=== PATIENT | male | born 1985 | race American Indian/Alaskan Native ===

== ENCOUNTER 2019-07-22 16:46 | Emergency (ER) | payer SELFPAY ==
[2019-07-22] MEDS ORDERED: ASPIRIN 325 MG TAB PO ONE (17:52)
--- NOTE | 2019-07-22 17:53 | Event Note ---
ED Screening Note Date of service: 07/22/19 Time: 17:51 ED Screening Note: 34 y o male presents with left sided chest pain x 2 days radiating to left arm This initial assessment/diagnostic orders/clinical plan/treatment(s) is/are subject to change based on patients health status, clinical progression and re- assessment by fellow clinical providers in the ED. Further treatment and workup at subsequent clinical providers discretion. Patient/guardian urged not to elope from the ED as their condition may be serious if not clinically assessed and managed. Initial orders include: labs
--- NOTE | 2019-07-22 18:35 | XRay Report ---
CHEST 1 VIEW 6:03 PM INDICATION / CLINICAL INFORMATION: Chest Pain. COMPARISON: None available. FINDINGS: SUPPORT DEVICES: None. HEART / MEDIASTINUM: The heart size and pulmonary vasculature are normal for technique. The aorta is normal in caliber. LUNGS / PLEURA: No significant pulmonary or pleural abnormality. No pneumothorax. ADDITIONAL FINDINGS: No significant additional findings. IMPRESSION: No acute findings. Signer Name: Srinivasan Nicole MD Signed: 07/22/2019 6:31 PM Workstation Name: [id number]
[2019-07-22 18:49] LABS: Basophils # (Auto) 0.1 K/mm3 (0.0-0.1); Eosinophils % (Auto) 0.4 % (0.0-4.3); Hematocrit 43.4 % (35.5-45.6); Hemoglobin 14.4 gm/dl (11.8-15.2); Lymphocytes # (Auto) 2.3 K/mm3 (1.2-5.4); Lymphocytes % (Auto) 36.4 % (13.4-35.0); Mean Corpuscular HGB Conc 33 % (32-34); Mean Corpuscular Volume 84 fl (84-94); Monocytes # (Auto) 0.5 K/mm3 (0.0-0.8); Monocytes % (Auto) 7.9 % (0.0-7.3); Platelet Count 200 K/mm3 (140-440); Red Blood Count 5.15 M/mm3 (3.65-5.03); Red Cell Distribution Width 13.3 % (13.2-15.2)
[2019-07-22 19:16] LABS: BUN/Creatinine Ratio 12; Blood Urea Nitrogen 11 mg/dL (9-20); Calcium 9.7 mg/dL (8.4-10.2); Hemolysis Index 31
[2019-07-22] MEDS ORDERED: NITROGLYCERIN 0.4 MG TAB SUBL SL PRN (20:22)
[2019-07-22] MEDS ORDERED: ASPIRIN 325 MG TAB ONE (20:57)
[2019-07-22 21:03] VITALS: BP 169/96
--- NOTE | 2019-07-22 22:49 | Emergency Department Report ---
ED Chest Pain HPI - General Chief Complaint: Chest Pain Stated Complaint: CHEST PAIN/LT ARM NUMB Source: patient Mode of arrival: Ambulatory Limitations: No Limitations - History of Present Illness Initial Comments: Patient is a 34-year-old -[place] male with a history of hypertension and who is noncompliant with medications presents to the ED with acute onset persistent left-sided chest pain that radiates to the left arm with tingling and numbness, headache and elevated blood pressure for the last 1 week, worse in the last 2 days. Patient states that the left-sided chest pain was initially intermittent but in the last 2 days has continued to be constant, sharp t ightness and pressure on the left side of the chest. Patient denies diaphoresis, nausea, vomiting, change in vision, syncope, palpitations, abdominal pain, neck pain, heavy lifting or fall and traumatic injury, sore throat or cough, fever and chills. Patient states that he he took 2 aspirins 2 days ago with no relief. MD Complaint: chest pain, other (elevated BP; headache; left arm numbness and tingling sensation) -: Sudden, week(s) (1) Onset: during rest, during exertion, awoke with symptoms Pain Location: substernal, left chest Pain Radiation: LUE Severity: severe Severity scale (0 -10): 6 Quality: aching, sharp Consistency: constant Improves With: nothing Worsens With: exertion, palpation, movement re: denies: nausea, vomting, diaphoresis, dyspnea, sense of impending doom Other Symptoms: denies: cough, fever, syncope, rash, acid taste in mouth, leg swelling, palpitations, burping, other Treatments Prior to Arrival: none Aspirin use within the Past 7 Days: (1) Yes - Related Data On Oral Contraceptives: No Previous Rx's Medication Instructions Recorded Last Taken Type Ibuprofen [Motrin] 800 mg PO Q8HR PRN #24 tablet 07/22/19 Unknown Rx Lisinopril/Hydrochlorothiazide 1 each PO DAILY #30 tablet 07/22/19 Unknown Rx [Zestoretic 20-12.5 mg] Nitroglycerin [Nitrostat] 0.4 mg SL Q5M PRN #24 tab 07/22/19 Unknown Rx Allergies Allergy/AdvReac Type Severity Reaction Status Date / Time No Known Allergies Allergy Verified 07/22/19 21:03 Heart Score - HEART Score History: Slightly suspicious EKG: Normal Age: < 45 Risk factors: 1-2 risk factors Troponin: < normal limit HEART Score: 1 ED Review of Systems ROS: Stated complaint: CHEST PAIN/LT ARM NUMB Other details as noted in HPI Constitutional: denies: chills, fever Eyes: denies: eye pain, eye discharge, vision change ENT: denies: ear pain, throat pain Respiratory: denies: cough, shortness of breath, wheezing Cardiovascular: chest pain (palpable left-sided chest pain). denies: palpitations, dyspnea on exertion, orthopnea, syncope, paroxysmal nocturnal dyspnea Endocrine: no symptoms reported. denies: flushing, intolerance to cold, increased thirst, unexplained weight gain Gastrointestinal: denies: abdominal pain, nausea, vomiting, diarrhea Genitourinary: denies: urgency, dysuria Musculoskeletal: denies: back pain, joint swelling, arthralgia Skin: denies: rash, lesions Neurological: headache. denies: weakness, paresthesias Psychiatric: anxiety. denies: depression Hematological/Lymphatic: denies: easy bleeding, easy bruising ED Past Medical Hx - Past Medical History Previous Medical History?: Yes Hx Hypertension: Yes - Surgical History Past Surgical History?: No - Medications Home Medications: Home Medications Medication Instructions Recorded Confirmed Last Taken Type Ibuprofen [Motrin] 800 mg PO Q8HR PRN #24 tablet 07/22/19 Unknown Rx Lisinopril/Hydrochlorothiazide 1 each PO DAILY #30 tablet 07/22/19 Unknown Rx [Zestoretic 20-12.5 mg] Nitroglycerin [Nitrostat] 0.4 mg SL Q5M PRN #24 tab 07/22/19 Unknown Rx ED Physical Exam - General Limitations: No Limitations General appearance: alert, in no apparent distress - Head Head exam: Present: atraumatic, normocephalic, normal inspection - Eye Eye exam: Present: normal appearance, PERRL, EOMI Pupils: Present: normal accommodation - ENT ENT exam: Present: normal exam, normal orophraynx, mucous membranes moist, TM's normal bilaterally, normal external ear exam - Neck Neck exam: Present: normal inspection, full ROM. Absent: tenderness, meningismus, lymphadenopathy, thyromegaly - Respiratory Respiratory exam: Present: normal lung sounds bilaterally, chest wall tenderness. Absent: respiratory distress, wheezes, rales, rhonchi, stridor, accessory muscle use, prolonged expiratory - Cardiovascular Cardiovascular Exam: Present: normal rhythm, bradycardia, normal heart sounds. Absent: systolic murmur, diastolic murmur, rubs, gallop - GI/Abdominal GI/Abdominal exam: Present: soft, normal bowel sounds. Absent: tenderness, guarding, rebound, hyperactive bowel sounds, organomegaly - Extremities Exam Extremities exam: Present: normal inspection, full ROM, normal capillary refill - Back Exam Back exam: Present: normal inspection, full ROM. Absent: tenderness, CVA tenderness (R), muscle spasm, paraspinal tenderness, vertebral tenderness - Neurological Exam Neurological exam: Present: alert, oriented X3, CN II-XII intact, normal gait, reflexes normal - Psychiatric Psychiatric exam: Present: normal affect, normal mood, anxious - Skin Skin exam: Present: warm, dry, intact, normal color. Absent: rash, diaphoretic, erythema, urticaria ED Course Vital Signs 07/22/19 07/22/19 07/22/19 17:49 21:00 21:02 Temperature 98.0 F Pulse Rate 56 L 57 L 57 L Respiratory 16 18 Rate Blood Pressure 169/96 Blood Pressure 178/105 169/96 [Right] O2 Sat by Pulse 95 96 Oximetry 07/22/19 21:57 Temperature Pulse Rate 96 H Respiratory 17 Rate Blood Pressure Blood Pressure [Right] O2 Sat by Pulse 98 Oximetry THEO score - Theo Score Age > 65: (0) No Aspirin use within the Past 7 Days: (1) Yes 3 or more CAD Risk Factors: (0) No 2 or more Angina events in past 24 hrs: (1) Yes Known CAD with more than 50% Stenosis: (0) No Elevated Cardiac Markers: (0) No ST Deviation Greater than 0.5mm: (0) No THEO Score: 2 ED Medical Decision Making - Lab Data Result diagrams: 07/22/19 18:14 07/22/19 18:14 - EKG Data EKG shows normal: sinus rhythm Rate: bradycardia - EKG Data 07/22/19 22:54 Initial EKG shows sinus bradycardia with a ventricular rate of [address] elevation in certain leads V2, V3, V4 which are characterized as normal early repolarization pattern. 07/22/19 23:21 Repeat EKG shows sinus bradycardia with a ventricular rate of [address] elevation in certain leads V2, V3, V4 which are characterized as normal early repolarization pattern. - Radiology Data Radiology results: report reviewed, image reviewed Chest x-ray shows no acute cardiopulmonary abnormalities or pneumonitis. - Medical Decision Making This is a 34-year-old -[place] male with a history of hypertension and is noncompliant with his medications presented to the ED with elevated blood pressure, headache, left-sided chest pain that radiated to the left arm for one week constantly. Patient states that 2 days ago the pain got worse and she had to take 2 aspirin tablets, and given this did not help control his constant chest pain. In the ED, EKG shows sinus bradycardia with ventricular rate of [address] elevation in certain leads V2, V3, V4 which are characterized as normal early repolarization pattern. Repeat EKG after 3 hours in the ED is unchanged. Lab test results were reviewed and are all nonactionable including initial and repeat troponin levels. The patient's heart school is 1 based on the past medical history of hypertension. Chest x-ray shows no acute cardiopulmonary abdomen the case. Patient was treated initially in the ED with aspirin and also given nitroglycerin 0.4 mg sublingual tablets which helped control his left sided chest pain from a 10 out of 10 initially to a 2 out of 10. Patient's case was discussed with ED attending physician who corin mmended the patient be admitted to the hospital for further cardiac work up. This plan was to get the patient but the patient declined to be admitted and opted to sign out AGAINST MEDICAL ADVICE. Patient was advised on the pros and cons of signing out AGAINST MEDICAL ADVICE from the hospital associated given his symptoms and physical exam findings. Patient however still declined and opted to sign out AMA. - Differential Diagnosis ACS; Uncontrolled HTN; Costochondritis; Muscle strain; Anxiety Critical Care Time: Yes Critical care time in (mins) excluding proc time.: 35 Critical care attestation.: If time is entered above; I have spent that time in minutes in the direct care of this critically ill patient, excluding procedure time. Critical Care Time: 35 minutes ED Disposition Clinical Impression: Uncontrolled stage 2 hypertension, Chest pain in adult, Anxiety as acute reaction to exceptional stress Disposition: DC-07 LEFT AGAINST MED ADVICE Is pt being admited?: No Does the pt Need Aspirin: No Condition: Stable Instructions: Chest Pain (ED), Hypertension (ED), Angina (ED) Additional Instructions: Even though you have signed out AGAINST MEDICAL ADVICE on the emergency department, please follow-up with the radio despatcher Dr. Hines within 48 hours for further evaluation. Contact his office to schedule a follow-up appointment for further evaluation. Prescriptions: Ibuprofen [Motrin] 800 mg PO Q8HR PRN #24 tablet PRN Reason: Pain , Severe (7-10) Nitroglycerin [Nitrostat] 0.4 mg SL Q5M PRN #24 tab PRN Reason: Chest Pain Lisinopril/Hydrochlorothiazide [Zestoretic 20-12.5 mg] 1 each PO DAILY #30 tablet Referrals: KAREN HINES MD [Staff Physician] - [facility] JORGE BEAN MD [Staff Physician] - 7-10 days Forms: AMA Form, Work/School Release Form(ED) Time of Disposition: 23:56 Print Language: ARABIC
== END 2019-07-23 00:08 | disposition left against medical advice (07) ==
LOC: ED 16:46
DX: F41.1 Generalized anxiety disorder (principal); R20.0 Anesthesia of skin; I10 Essential (primary) hypertension; Z79.899 Other long term (current) drug therapy
CPT/HCPCS: 36415; 71045; 80048; 83880; 84484; 85025; 93005; 93010

== ENCOUNTER 2020-03-11 17:12 | Emergency (ER) | payer SELFPAY ==
[2020-03-11 17:49] VITALS: BP 156/77
== END 2020-03-11 21:20 | disposition left against medical advice (07) ==
LOC: ED 17:12
DX: R06.00 Dyspnea, unspecified (principal); Z53.21 Procedure and treatment not carried out due to patient leaving prior to being seen by health care provider

== ENCOUNTER 2022-01-20 11:29 | Emergency (ER) | payer SELFPAY ==
[2022-01-20] MEDS ORDERED: TETANUS,DIPH,PERTUSS(ACELL) VACCINE 0.5 ML SYRINGE IM ONE (16:01)
[2022-01-20 16:23] VITALS: BP 151/80
--- NOTE | 2022-01-20 16:26 | Emergency Department Report ---
ED Extremity Problem HPI - General Chief complaint: Wound/Laceration Stated complaint: RT FOOT CUT WITH INFECTION/LT FOOT PAIN Source: patient Mode of arrival: Ambulatory Limitations: No Limitations - History of Present Illness Initial comments: Patient is a 36-year-old -[place] male with a history of hypertension who presents to the ED with complaint of acute onset persistent left plantar foot pain due to a small puncture wound that he sustained after stepping on a plastic toy at home that caused a small puncture wound 2 months ago. Patient states that he did not come to the hospital when this injury occurred 2 months ago. Patient states the pain has been constant and persistent in the in the last 1 week the area around the small puncture wound has increasingly been swelling. Patient also complains of persistent itchy mildly erythematous rash with greenish discharge between his right toes for over 1 month. Patient states that he is not up-to-date with tetanus vaccinations. Patient denies fall, nausea and vomiting, chest pain or shortness of breath, fever, chills, numbness and tingling or weakness of lower extremities bilaterally, low back pain or h eavy lifting. MD Complaint: extremity pain (Left plantar foot painful puncture wound) -: Gradual, month(s) (2) Location: left (foot), lower extremity (left plantar foot) History of Same: No -: Yes arthralgia, No fever, No associated dyspnea, No associated chest pain Radiation: none Severity scale (0 -10): 8 Quality: aching, sharp Consistency: constant Improves with: nothing Worsens with: weight bearing, walking, exertion, palpation Associated Symptoms: denies other symptoms. denies: chest pain, shortness of breath, fever, myalgias, arthralgias, rash - Related Data Previous Rx's Medication Instructions Recorded Last Taken Type Lisinopril/Hydrochlorothiazide 1 each PO DAILY #30 tablet 07/22/19 Unknown Rx [Zestoretic 20-12.5 mg] Nitroglycerin [Nitrostat] 0.4 mg SL Q5M PRN #24 tab 07/22/19 Unknown Rx Ciprofloxacin HCl 500 mg PO Q12H #20 tab 01/20/22 Unknown Rx Ibuprofen [Motrin 800 MG tab] 800 mg PO Q8HR PRN #30 tablet 01/20/22 Unknown Rx Terbinafine HCl [Lamisil] 125 ml TP BID #1 spray 01/20/22 Unknown Rx Allergies Allergy/AdvReac Type Severity Reaction Status Date / Time No Known Allergies Allergy Verified 03/11/20 17:44 ED Review of Systems ROS: Stated complaint: RT FOOT CUT WITH INFECTION/LT FOOT PAIN Other details as noted in HPI Constitutional: denies: chills, fever Eyes: denies: eye pain, eye discharge, vision change ENT: denies: ear pain, throat pain Respiratory: denies: cough, shortness of breath, wheezing Cardiovascular: denies: chest pain, palpitations Endocrine: no symptoms reported Gastrointestinal: denies: abdominal pain, nausea, diarrhea Genitourinary: denies: urgency, dysuria Musculoskeletal: arthralgia (left plantar foot pain with mild swelling due to a small puncture wound), myalgia. denies: back pain, joint swelling Skin: other (swollen painful small puncture wound on left flantar foot). denies: rash, lesions, change in color Neurological: denies: headache, weakness, paresthesias Psychiatric: denies: anxiety, depression Hematological/Lymphatic: denies: easy bleeding, easy bruising ED Past Medical Hx - Past Medical History Hx Hypertension: Yes - Medications Home Medications: Home Medications Medication Instructions Recorded Confirmed Last Taken Type Lisinopril/Hydrochlorothiazide 1 each PO DAILY #30 tablet 07/22/19 Unknown Rx [Zestoretic 20-12.5 mg] Nitroglycerin [Nitrostat] 0.4 mg SL Q5M PRN #24 tab 07/22/19 Unknown Rx Ciprofloxacin HCl 500 mg PO Q12H #20 tab 01/20/22 Unknown Rx Ibuprofen [Motrin 800 MG tab] 800 mg PO Q8HR PRN #30 tablet 01/20/22 Unknown Rx Terbinafine HCl [Lamisil] 125 ml TP BID #1 spray 01/20/22 Unknown Rx ED Physical Exam - General Limitations: No Limitations General appearance: alert, in no apparent distress - Head Head exam: Present: atraumatic, normocephalic, normal inspection - Eye Eye exam: Present: normal appearance, PERRL, EOMI Pupils: Present: normal accommodation - ENT ENT exam: Present: normal exam, normal orophraynx, mucous membranes moist, TM's normal bilaterally, normal external ear exam - Neck Neck exam: Present: normal inspection, full ROM. Absent: tenderness, lymphadenopathy - Respiratory Respiratory exam: Present: normal lung sounds bilaterally. Absent: respiratory distress, wheezes, rales, rhonchi, chest wall tenderness, accessory muscle use, decreased breath sounds, prolonged expiratory - Cardiovascular Cardiovascular Exam: Present: regular rate, normal rhythm, normal heart sounds. Absent: systolic murmur, diastolic murmur, rubs, gallop - GI/Abdominal GI/Abdominal exam: Present: soft, normal bowel sounds. Absent: tenderness, guarding, rebound, hyperactive bowel sounds, hypoactive bowel sounds, bruit - Extremities Exam Extremities exam: Present: normal inspection, full ROM, tenderness (Palpable left plantar foot tenderness due to a small puncture wound with mild swelling), normal capillary refill. Absent: pedal edema, joint swelling - Back Exam Back exam: Present: normal inspection, full ROM. Absent: tenderness, CVA tenderness (R), CVA tenderness (L), muscle spasm, paraspinal tenderness, mk tebral tenderness - Neurological Exam Neurological exam: Present: alert, oriented X3, CN II-XII intact, normal gait, reflexes normal - Psychiatric Psychiatric exam: Present: normal affect, normal mood - Skin Skin exam: Present: warm, dry, intact, normal color, rash (Mild ulcerated wounds between toes webbing with greenish-white discharge) ED Medical Decision Making - Medical Decision Making This is a 36-year-old -[place] male with a history of hypertension who presents to the ED with complaint of acute onset persistent left plantar foot pain due to a small puncture wound that he sustained after stepping on a plastic toy at home that caused a small puncture wound 2 months ago. Patient states that he did not come to the hospital when this injury occurred 2 months ago. Patient states the pain has been constant and persistent in the in the last 1 week the area around the small puncture wound has increasingly been swelling. Patient also complains of persistent itchy mildly erythematous rash with greenish discharge between his right toes for over 1 month. Patient states that he is not up-to-date with tetanus vaccinations. In the ED, patient is alert and oriented x3 and is not in any distress. Patient was treated for pain in the ED and also received booster tetanus vaccination. Patient was discharged home on medications for pain, antifungal foot spray and antibiotics and advised to follow-up with his primary care physician in 7 to 10 days for reevaluation. Patient was also advised to return to the ED immediately if symptoms get worse. - Differential Diagnosis Puncture wound; tinea pedis; colitis; foot injury; foot cellulitis Critical care attestation.: If time is entered above; I have spent that time in minutes in the direct care of this critically ill patient, excluding procedure time. ED Disposition Clinical Impression: Tinea pedis of right foot, Cellulitis of left foot Puncture wound of plantar aspect of left foot with infection Qualifiers: Encounter type: initial encounter Qualified Code(s): S91.332A - Puncture wound without foreign body, left foot, initial encounter; L08.9 - Local infection of the skin and subcutaneous tissue, unspecified Disposition: HOME / SELF CARE / HOMELESS Is pt being admited?: No Does the pt Need Aspirin: No Condition: Stable Instructions: Puncture Wound, [id number], Cellulitis, Adult, [id number], Athlete's Foot, [id number] Additional Instructions: Take medication with food, drink plenty of fluids and follow-up with your primary care physician in 7 to 10 days for reevaluation. Return to the ED immediately if symptoms get worse. Prescriptions: Ciprofloxacin HCl 500 mg PO Q12H #20 tab Terbinafine HCl [Lamisil] 125 ml TP BID #1 spray Ibuprofen [Motrin 800 MG tab] 800 mg PO Q8HR PRN #30 tablet PRN Reason: Pain , Severe (7-10) Referrals: [facility] [Provider Group] - 7-10 days Time of Disposition: 16:32 Print Language: NEPALI
== END 2022-01-20 18:02 | disposition home or self-care (01) ==
LOC: ED 11:29
DX: S91.332A Puncture wound without foreign body, left foot, initial encounter (principal); B35.3 Tinea pedis; L03.116 Cellulitis of left lower limb; I10 Essential (primary) hypertension; W22.8XXA Striking against or struck by other objects, initial encounter; Y93.89 Activity, other specified; Y92.89 Other specified places as the place of occurrence of the external cause; Y99.8 Other external cause status
CPT/HCPCS: 90471; 90715; 99282